=== PATIENT | female | born 1985 | race African-American/Black ===

== ENCOUNTER 2017-09-03 20:26 | Emergency (ER) | payer SELFPAY ==
[2017-09-03 20:39] VITALS: BP 126/85
[2017-09-03] MEDS ORDERED: Albuterol HFA INHALER* 8 gm MDI INH ONE (22:32)
--- NOTE | 2017-09-03 22:52 | ED ---
Shortness of Breath - HPI Summary HPI Summary: Patient presents to the ED with SOB. She states she has been seen twice for this at the [facility], and continues to have SOB. Notes to a mild cough. She was prescribed phenylephrine, but states she is allergic. She notes to worsening SOB at night and feels something stuck in her throat. Concerned also with thyroid cancer as her aunt has this. On arrival, RN notes to patient hyperventilating stating she cannot breathe, although her sat is 100%. She denies productive cough. She denies recent illness, throat pain or fevers, sweats or chills. Denies difficulty swallowing, allergies or hx of asthma. She appears to be in NAD. - History of Current Complaint Chief Complaint: EDShortnessOfBreath Time Seen by Provider: 09/03/17 22:05 Hx Obtained From: Patient Onset/Duration: Sudden Onset Timing: Constant Current Severity: None Aggrevating Factors: Deep Breaths, Recumbent Position Alleviating Factors: Nothing Associated Signs & Symptoms: Cough (Nonproductive) - Risk Factors Pulmonary Embolism: Negative Cardiac: Negative Pseudomonas: Negative Tuberculosis: Negative - Allergy/Home Medications Allergies/Adverse Reactions: Allergies Allergy/AdvReac Type Severity Reaction Status Date / Time Iodine Allergy Anaphylatic Verified 09/03/17 20:39 Shock NSAIDs Allergy Bleeding Verified 09/03/17 20:40 PMH/Surg Hx/FS Hx/Imm Hx Previously Healthy: Yes - Immunization History Hx Pertussis Vaccination: No Immunizations Up to Date: Unable to Obtain/Confirm Infectious Disease History: No Infectious Disease History: Denies: Traveled Outside the [place] in Last 30 Days - Social History Occupation: Employed Full-time Lives: With Family Alcohol Use: None Hx Substance Use: No Substance Use Type: Reports: None Hx Tobacco Use: No Smoking Status (MU): Never Smoked Tobacco Review of Systems Constitutional: Negative Negative: Fever, Chills, Fatigue Eyes: Negative Positive: Chest Pain Positive: Shortness Of Breath Gastrointestinal: Negative Genitourinary: Negative Positive: no symptoms reported, see HPI Musculoskeletal: Negative Neurological: Negative Psychological: Normal All Other Systems Reviewed And Are Negative: Yes Physical Exam Triage Information Reviewed: Yes Vital Signs On Initial Exam: Initial Vitals Temp Pulse Resp BP Pulse Ox 97.9 F 93 24 126/85 100 09/03/17 20:30 09/03/17 20:30 09/03/17 20:30 09/03/17 20:30 09/03/17 20:30 Vital Signs Reviewed: Yes Appearance: Positive: Well-Appearing, Well-Nourished Skin: Positive: Warm, Skin Color Reflects Adequate Perfusion Head/Face: Positive: Normal Head/Face Inspection Eyes: Positive: EOMI, NADIYA, Conjunctiva Clear Neck: Positive: Supple, No Lymphadenopathy Respiratory/Lung Sounds: Positive: Clear to Auscultation, Breath Sounds Present Cardiovascular: Positive: RRR, Pulses are Symmetrical in both Upper and Lower Extremities Musculoskeletal: Positive: Normal, Strength/ROM Intact Neurological: Positive: Sensory/Motor Intact, Alert, Oriented to Person Place, Time, Speech Normal Psychiatric: Positive: Normal, Affect/Mood Appropriate - [place] Coma Scale Coma Scale Total: 15 Diagnostics - Vital Signs Vital Signs Temp Pulse Resp BP Pulse Ox 09/03/17 20:30 97.9 F 93 24 126/85 100 - Laboratory Lab Statement: Any lab studies that have been ordered have been reviewed, and results considered in the medical decision making process. Course/Dx - Course Course Of Treatment: Patient is evaluated for SOB vs. airway obstruction or asthma vs. other. She remains at 100% on RA. She notes to chest pain only when taking deep breaths. Albuterol inhaler is given and 2 puffs in ED improved symptoms. However, d/t patient stating she had some SOB, d-dimer was ordered. D -dimer 333. D/t low risk for PE, according to [facility]: For patients in whom the risk of PE is thought to be low, a normal D-dimer (<500 ng/mL [fibrinogen equivalent units]) effectively excludes PE, and typically no further testing is required. CTA not ordered. Xray negative for any acute findings. She is given 50mg prednisone x 5 days. I have informed her to follow up with PCP and likely this is an anxiety attack vs. new onset asthma. She agrees to plan and will follow up accordingly. - Diagnoses Differential Diagnosis/HQI/PQRI: Positive: Airway Obstruction, Asthma, Chest Wall Pain, Pulmonary Embolism, Other - anxiety Provider Diagnoses: Shortness of breath Discharge - Discharge Plan Condition: Stable Disposition: HOME Prescriptions: Albuterol HFA INHALER* [Ventolin HFA Inhaler*] 1 puff INH Q4H PRN #1 mdi PRN Reason: Shortness Of Breath predniSONE TAB* [Deltasone TAB*] 50 mg PO DAILY #5 tab MDD 1 Patient Education Materials: Dyspnea (ED) Referrals: No Primary Care Phys,NOPCP [Primary Care Provider] - Additional Instructions: Please follow up with your PCP Take the albuterol as prescribed - up to every 4 hours Prednisone in the morning daily for 5 days
--- NOTE | 2017-09-04 08:50 | RAD ---
INDICATION: Shortness of breath, cough, chest pain. COMPARISON: No relevant prior exams available on the [facility] [place] for comparison. TECHNIQUE: Dual energy PA and routine lateral views of the chest were obtained. REPORT: Clear lungs and pleural spaces. Negative for pneumothorax. The heart, pulmonary vasculature, and mediastinal contours are unremarkable. Unremarkable osseous structures and soft tissue contours. IMPRESSION: No evidence for acute intrathoracic disease.
== END 2017-09-04 00:40 | disposition home or self-care (01) ==
LOC: ED 20:26
DX: R06.02 Shortness of breath (principal); R05 Cough; R07.9 Chest pain, unspecified
CPT/HCPCS: 36415; 71020; 85379; 99282; A9270-GY

== ENCOUNTER 2017-09-27 21:49 | Emergency (ER) | payer SELFPAY ==
[2017-09-27 21:56] VITALS: BP 120/80
--- NOTE | 2017-09-27 22:14 | UC ---
Davidson Rahman Natalie, scribed for Michael Romero MD on 09/27/17 at 2206 . Cardiac HPI - HPI Summary HPI Summary: The pt is a 32 y/o F presenting to c/o chest tightness and cough since . The pt states the pain feels like someones choking me. The chest tightness is rated 6/10. She was seen in the ER for similar symptoms on and was treated with Albuterol and steroids. Pt additionally c/o SOB and post nasal drip. The pain is aggravated by deep breaths (breathing through a straw) and is alleviated by nothing. She does not smoke. - History of Current Complaint Stated Complaint: COUGH Hx Obtained From: Patient Hx Last Menstrual Period: depo Onset/Duration: Lasting Weeks - started 08/18/17, Still Present Initial Severity: Moderate Current Severity: Moderate Chest Pain Location: Mid Sternal Character: Tightness Aggravating Factor(s): Deep Breaths Alleviating Factor(s): Nothing Associated Signs & Symptoms: Positive: SOB, Cough - Allergy/Home Medications Allergies/Adverse Reactions: Allergies Allergy/AdvReac Type Severity Reaction Status Date / Time Iodine Allergy Anaphylatic Verified 09/27/17 21:56 Shock NSAIDs Allergy Bleeding Verified 09/27/17 21:56 PMH/Surg Hx/FS Hx/Imm Hx - Surgical History Surgical History: None - Family History Known Family History: Positive: Cardiac Disease, Diabetes - Social History Alcohol Use: None Substance Use Type: None Smoking Status (MU): Never Smoked Tobacco Review of Systems ENT: Nasal Discharge, Sinus Congestion Respiratory: Shortness Of Breath, Cough Cardiovascular: Other - chest tightness All Other Systems Reviewed And Are Negative: Yes Physical Exam Triage Information Reviewed: Yes Appearance: Well-Appearing, No Pain Distress Vital Signs: Initial Vital Signs Temp 99.4 F 09/27/17 21:51 Pulse 90 09/27/17 21:51 Resp 18 09/27/17 21:51 BP 120/80 09/27/17 21:51 Pulse Ox 100 09/27/17 21:51 Vital Signs Reviewed: Yes Eyes: Positive: Conjunctiva Clear ENT: Positive: Pharynx normal, TMs normal Respiratory: Positive: Lungs clear, Normal breath sounds, No respiratory distress Cardiovascular: Positive: RRR, No Murmur Abdomen Description: Positive: Nontender Musculoskeletal: Positive: No Edema Neurological: Positive: Alert, Muscle Tone Normal Psychological: Positive: Normal Response To Family Skin Exam: Normal Diagnostics - EKG Cardiac Rate: NL Cardiac Rhythm: Sinus: Normal Ectopy: None ST Segment: Normal - Assessment/Plan Course Of Treatment: 32 yr old with chest tightness, some sob and worsening with deep breaths. EKG ok. Recommend ambulance transport to ER for further work up. She declines ambulance and signed out AMA. - Clinical Impression Provider Diagnoses: chest tightness. sob Discharge - Discharge Plan Condition: Good Disposition: AGAINST MEDICAL ADVICE Referrals: No Primary Care Phys,NOPCP [Primary Care Provider] - The documentation as recorded by the Davidson bella Natalie accurately reflects the service I personally performed and the decisions made by , Michael Romero MD.
== END 2017-09-27 22:18 | disposition left against medical advice (07) ==
LOC: UCEAST 21:49
DX: R07.9 Chest pain, unspecified (principal); R06.02 Shortness of breath; Z88.6 Allergy status to analgesic agent; Z88.8 Allergy status to other drugs, medicaments and biological substances
CPT/HCPCS: 93005; 99212; G0463

== ENCOUNTER 2017-09-28 10:53 | Emergency (ER) | payer SELFPAY ==
[2017-09-28 13:04] LABS: ABS Basophils 0.1 10^3/ul (0-0.2); ABS Eosinophils 0 10^3/ul (0-0.6); ABS Lymphocytes 1.7 10^3/ul (1.0-4.8); ABS Monocytes 0.4 10^3/ul (0-0.8); ABS Neutrophils 5.9 10^3/ul (1.5-7.7); ABS Nucleated RBC 0.01 10^3/ul; Eosinophil % 0.3 % (0-6); Hematocrit 37 % (35-47); Hemoglobin 11.7 g/dl (12.0-16.0); Lymphocyte % 20.9 % (25-47); Mean Corpuscular HGB Conc 32 g/dl (31-36); Mean Corpuscular Hemoglobin 25 pg (27-31); Mean Corpuscular Volume 78 fL (80-97); Mean Platelet Volume 10 um3 (7.4-10.4); Nucleated Red Blood Cells % 0.1; Platelet Count 282 10^3/ul (150-450); Red Cell Distribution Width 17 % (10.5-15); White Blood Count 8.1 10^3/ul (3.5-10.8)
[2017-09-28 15:22] LABS: Urine Appearance Cloudy; Urine Blood Negative (Negative); Urine Color Yellow; Urine Ketones Negative (Negative); Urine Protein 1+(30 mg/dL) (Negative); Urine Specific Gravity 1.026 (1.010-1.030); Urine Urobilinogen Negative (Negative)
--- NOTE | 2017-09-28 18:53 | RAD ---
Indication: Shortness of breath, chest tightness. Multiple clinical visits for same complaint. Comparison: Chest radiograph of the same date. Technique: Following administration of 8.400 mCi xenon-133 by inhalation anterior and posterior ventilation images were obtained. Following the administration of 6.100 mCi of Tc-99m macroaggregated albumin, perfusion images were obtained in multiple projections. Report: The ventilation pattern is uniform with mild delayed washout consistent with air trapping.. Negative for segmental or subsegmental perfusion defects. Perfusion is uniform throughout both lungs. IMPRESSION: 1. Mild diffuse air trapping consistent with obstructive lung disease. Correlate with clinical assessment. 2. Negative for subsegmental or segmental perfusion defects to indicate pulmonary embolism.
[2017-09-28 19:09] VITALS: BP 119/79
--- NOTE | 2017-09-28 20:08 | RAD ---
INDICATION: Dyspnea, shortness of breath, chest tightness. COMPARISON: VQ scan of the same date and September 03, 2017 chest radiograph. TECHNIQUE: Dual energy PA and routine lateral views of the chest were obtained. REPORT: Mildly elevated lung volumes. No pulmonary infiltrate, focal pulmonary lesion, pleural effusion, pneumothorax. The heart, pulmonary vasculature, and mediastinal contours are unremarkable. Unremarkable soft tissue contours and osseous structures. IMPRESSION: No radiographic evidence for pneumonia or acute cardiac process. Elevated lung volumes further supporting obstructive lung disease with VQ scan of the same date documented air trapping.
--- NOTE | 2017-09-29 08:48 | ED ---
Julio Rahman Angela, scribed for Christopher York MD on 09/28/17 at 1538 . HPI Chest Pain - HPI Summary HPI Summary: This pt is a 32 y/o female presenting to [facility] c/o chest tightness and non- productive cough since 2016. Pt reports she feels "squeezing" in her neck. She additionally notes SOB. Pt describes burning in her chest, which is constant and is waxing and waning. Her burning is aggravated at night. Denies fever. Pt reports she was given steroids (5 days worth) and inhaler pump with some relief. She notes her cough has not been alleviated. Prior to this pt was prescribed pseudoephedrine but notes she didn't finish it as she had bloody stools. Allergies to NSAIDs. Pt does not have a PCP. Pt states this is the 7th time she has seen a doctor. Pt takes depo shots at [facility]. - History of Current Complaint Chief Complaint: EDChestPainROMI Time Seen by Provider: 09/28/17 15:28 Hx Obtained From: Patient Hx Last Menstrual Period: depo Onset/Duration: Started Weeks Ago, Still Present Timing: Lasting Weeks Pain Intensity: 10 Pain Scale Used: 0-10 Numeric Chest Pain Location: Diffuse Chest Pain Radiates: No Character: Burning Aggravating Factor(s): Other: - at night Alleviating Factor(s): Nothing Associated Signs and Symptoms: Positive: Chest Pain, Shortness of Breath, Cough , Nonproductive Cough - Allergy/Home Medications Allergies/Adverse Reactions: Allergies Allergy/AdvReac Type Severity Reaction Status Date / Time Iodine Allergy Anaphylatic Verified 09/27/17 21:56 Shock NSAIDs Allergy Bleeding Verified 09/27/17 21:56 PMH/Surg Hx/FS Hx/Imm Hx Endocrine/Hematology History: Denies: Hx Diabetes, Hx Thyroid Disease Cardiovascular History: Denies: Hx Hypertension Respiratory History: Denies: Hx Asthma, Hx Chronic Obstructive Pulmonary Disease (COPD) GI History: Denies: Hx Ulcer Infectious Disease History: No Infectious Disease History: Denies: Hx Clostridium Difficile, Hx Hepatitis, Hx Human Immunodeficiency Virus (HIV), Hx of Known/Suspected MRSA, Hx Shingles, Hx Tuberculosis, Hx Known/ Suspected VRE, Hx Known/Suspected VRSA, History Other Infectious Disease, Traveled Outside the [place] in Last 30 Days - Family History Known Family History: Positive: Cardiac Disease, Diabetes, Renal Disease, Other - RA Family History: Mom is 53 y/o and dad is 55 y/o. - Social History Alcohol Use: None Hx Substance Use: No Substance Use Type: Reports: None Hx Tobacco Use: No Smoking Status (MU): Never Smoked Tobacco Review of Systems Negative: Fever, Chills Eyes: Negative ENT: Negative Positive: Chest Pain Positive: Shortness Of Breath, Cough Gastrointestinal: Negative Genitourinary: Negative Skin: Negative All Other Systems Reviewed And Are Negative: Yes Physical Exam - Summary Physical Exam Summary: Appearance: The patient is well-nourished in no acute distress and in no acute pain. Skin: The skin is warm and dry and skin color reflects adequate perfusion. HEENT: The head is normocephalic and atraumatic. The pupils are equal and reactive. The conjunctivae are clear and without drainage. Nares are patent and without drainage. Mouth reveals moist mucous membranes and the throat is without erythema and exudate. The external ears are intact. The ear canals are patent and without drainage. The tympanic membranes are intact. Neck: the neck is supple with full range of motion and non-tender. There are no carotid bruits. There is no neck vein distension. Respiratory: Chest is non-tender. Lungs are clear to auscultation and breath sounds are symmetrical and equal. Cardiovascular: Heart is tachycardic. There is no murmur or rub auscultated. There is no peripheral edema and pulses are symmetrical and equal. Abdomen: The abdomen is soft and non-tender. There are normal bowel sounds heard in all four quadrants and there is no organomegaly palpated. Musculoskeletal: There is no back tenderness noted. Extremities are non-tender with full range of motion. There is good capillary refill. There is no peripheral edema or calf tenderness elicited. Neurological: Patient is alert and oriented to person, place and time. The patient has symmetrical motor strength in all four extremities. Cranial nerves are grossly intact. Deep tendon reflexes are symmetrical and equal in all four extremities. Psychiatric: The patient has an appropriate affect and does not exhibit any anxiety or depression. Triage Information Reviewed: Yes Vital Signs On Initial Exam: Initial Vitals Temp Pulse Resp BP Pulse Ox 97.8 F 107 20 134/90 100 09/28/17 10:54 01/03/18 10:54 09/28/17 10:54 09/28/17 10:54 09/28/17 10:54 Vital Signs Reviewed: Yes - [place] Coma Scale Coma Scale Total: 15 Diagnostics - Vital Signs Vital Signs Temp Pulse Resp BP Pulse Ox 09/28/17 15:05 17 09/28/17 15:04 132/82 09/28/17 14:59 18 09/28/17 14:30 112/72 09/28/17 14:01 97 09/28/17 14:00 96 20 113/79 100 09/28/17 13:45 105 120/84 99 09/28/17 13:31 91 117/102 99 09/28/17 13:26 98 99 09/28/17 13:24 114/78 09/28/17 10:54 97.8 F 107 20 134/90 100 - Laboratory Lab Results: Lab Results 09/28/17 09/28/17 09/28/17 Range/Units 12:49 12:49 15:00 WBC 8.1 (3.5-10.8) 10^3/ul RBC 4.70 (4.0-5.4) 10^6/ul Hgb 11.7 L (12.0-16.0) g/dl Hct 37 (35-47) % MCV 78 L (80-97) fL MCH 25 L (27-31) pg MCHC 32 (31-36) g/dl RDW 17 H (10.5-15) % Plt Count 282 (150-450) 10^3/ul MPV 10 (7.4-10.4) um3 Neut % (Auto) 73.1 (38-83) % Lymph % (Auto) 20.9 L (25-47) % [place] % (Auto) 4.9 (1-9) % Eos % (Auto) 0.3 (0-6) % Baso % (Auto) 0.8 (0-2) % Absolute Neuts (auto) 5.9 (1.5-7.7) 10^3/ul Absolute Lymphs (auto) 1.7 (1.0-4.8) 10^3/ul Absolute Monos (auto) 0.4 (0-0.8) 10^3/ul Absolute Eos (auto) 0 (0-0.6) 10^3/ul Absolute Basos (auto) 0.1 (0-0.2) 10^3/ul Absolute Nucleated RBC 0.01 10^3/ul Nucleated RBC % 0.1 Sodium 137 (133-145) mmol/L Potassium 3.7 (3.5-5.0) mmol/L Chloride 106 (101-111) mmol/L Carbon Dioxide 24 (22-32) mmol/L Anion Gap 7 (2-11) mmol/L BUN 10 (6-24) mg/dL Creatinine 0.68 (0.51-0.95) mg/dL Est GFR ( Amer) 127.4 (>60) Est GFR (Non-Af Amer) 99.0 (>60) BUN/Creatinine Ratio 14.7 (8-20) Glucose 84 (70-100) mg/dL Calcium 9.9 (8.6-10.3) mg/dL Magnesium 2.0 (1.9-2.7) mg/dL Total Bilirubin 0.40 (0.2-1.0) mg/dL AST 16 (13-39) U/L ALT 11 (7-52) U/L Alkaline Phosphatase 69 (34-104) U/L Total Protein 8.0 (6.4-8.9) g/dL Albumin 4.4 (3.2-5.2) g/dL Globulin 3.6 (2-4) g/dL Albumin/Globulin Ratio 1.2 (1-3) Lipase 23 (11.0-82.0) U/L Urine Color Yellow Urine Appearance Cloudy Urine pH 7.0 (5-9) Ur Specific [place] 1.026 (1.010-1.030) Urine Protein 1+(30 mg/dl) H (Negative) Urine Ketones Negative (Negative) Urine Blood Negative (Negative) Urine Nitrate Negative (Negative) Urine Bilirubin Negative (Negative) Urine Urobilinogen Negative (Negative) Ur Leukocyte Esterase 1+ H (Negative) Urine WBC (Auto) Trace(0-5/hpf) (Absent) Urine RBC (Auto) 3+(>10/hpf) H (Absent) Ur Squamous Epith Cells Present H (Absent) Amorphous Crystals Present H (Absent) Urine Bacteria 1+ H (Absent) Urine Glucose Negative (Negative) Urine Ascorbic Acid * H (Negative) Result Diagrams: 09/28/17 12:49 09/28/17 12:49 Lab Statement: Any lab studies that have been ordered have been reviewed, and results considered in the medical decision making process. - Radiology Chest XR Radiology Interpretation Completed By: Radiologist - pending official radiology report, please see [facility]. - EKG 15:02 Cardiac Rate: NL EKG Rhythm: Sinus Rhythm - at [address] Segment: Normal - Additional Comments Diagnostic Additional Comments: Lung Scan VQ NM, as read per radiologist: IMPRESSION: 1. Mild diffuse air trapping consistent with obstructive lung disease. Correlate with clinical assessment. 2. Negative for subsegmental or segmental perfusion defects to indicate pulmonary embolism. Dr. York has reviewed this radiology report. Chest Pain Course/Dx - Course Course Of Treatment: Ms. Gonzales has been struggling with difficulty breathing, a tight chest and burning in her chest for a couple months. She has been seen several times. She feels that the inhaler she was given has helped but not the steroids. She also feels like her throat closes. She is stubbornly tachycardic in the ED and had an elevated d-dimer on a previous presentation. She is allergic to contrast dye and I obtained a V/Q scan which was low probability. The radiologist did read it as air trapping though and I will add a steroid inhaler to see if that helps. She is in no visible distress. - Diagnoses Provider Diagnoses: Bronchospasm Discharge - Discharge Plan Condition: Stable Disposition: HOME Prescriptions: Albuterol/Ipratropium RESP(NF) [Combivent Respimat(NF)] 1 aer IN BID #1 inhaler Patient Education Materials: Bronchospasm (ED) Referrals: No Primary Care Phys,NOPCP [Primary Care Provider] - [facility] PHYSICIAN REFERRAL [Outside] Additional Instructions: Please follow up with your primary care provider. RETURN TO THE ED FOR ANY WORSENING SYMPTOMS. The documentation as recorded by the Julio belal Angela accurately reflects the service I personally performed and the decisions made by me, Christopher York MD.
== END 2017-09-28 19:08 | disposition home or self-care (01) ==
LOC: ED 10:53
DX: J98.01 Acute bronchospasm (principal); R07.9 Chest pain, unspecified; R06.02 Shortness of breath; R05 Cough
CPT/HCPCS: 36415; 71046; 78582; 80053; 81003; 81015; 83690; 83735; 84702; 85025; 86140; 87086; 93005; 99283; A9540; A9558

== ENCOUNTER → 2018-07-25 17:14 | Emergency (ER) | payer SELFPAY ==
[~2018-07-25 17:14] MED LIST: Acetaminophen TAB* 325 MG PO ONE; HYDROcodone/ACETAMIN 5-325 MG* 1 TAB PO ONE
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
[2018-07-25 19:49] VITALS: BP 109/88
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
== END | disposition home or self-care (01) ==
LOC: ED 17:14
DX: S81.812A Laceration without foreign body, left lower leg, initial encounter (principal); V13.4XXA Pedal cycle driver injured in collision with car, pick-up truck or van in traffic accident, initial encounter; Y93.55 Activity, bike riding; Y92.410 Unspecified street and highway as the place of occurrence of the external cause; Z88.6 Allergy status to analgesic agent; Z91.041 Radiographic dye allergy status; Z91.013 Allergy to seafood
CPT/HCPCS: 12002; 36415; 84702; 99282; A9270-GY

== ENCOUNTER 2019-07-02 12:16 | Emergency (ER) | payer OTHER ==
--- OUTSIDE RECORDS SUMMARY | 2019-07-02 12:41 | XMS REPORT | Continuity of Care Document ---
:1985 External Reference #:[id number] Author Name Annabella Burroughs MD Address [address] [place] [address] Care Team Providers Name Role Phone [facility] Care Team Information Membership Correspondent [phone] Problems Active Problems Provider Date Cervical intraepithelial neoplasia grade 2 Annabella Burroughs MD Onset: 2018 Disorder of menstruation Annabella Burroughs MD Onset: 04/19/2019 Social History Type Date Description Comments Sex Unknown Tobacco Use Start: Unknown Never Smoked Cigarettes ETOH Use Denies alcohol use Recreational Drug Use Denies Drug Use Tobacco Use Start: Unknown Patient has never smoked Smoking Status Reviewed: 06/08/19 Patient has never smoked Exercise Type/Frequency Exercises regularly Seat Belt/Car Seat Always uses seat belt Allergies, Adverse Reactions, Alerts Active Allergies Reaction Severity Comments Date Iodine Hives, Itching 04/10/2019 Pseudoephedrine Anaphylaxis 04/10/2019 Shellfish-Derived Products Anaphylaxis 04/10/2019 NSAIDs 06/08/2019 Medications Active Medications SIG Qnty Indications Ordering Provider Date Iron 1 po tid Unknown 325(65Fe) mg Tablets Vitamin C 1 by mouth every Unknown 500mg Tablets day Medications Administered in Office Medication SIG Qnty Indications Ordering Provider Date PT SCRN Tbco Id as Non User Annabella Burroughs MD 04/11/2019 Injection Immunizations Description No Information Available Vital Signs Date Vital Result Comment 06/08/2019 2:51pm BP Systolic 122 mmHg BP Diastolic 74 mmHg Height 64.5 inches 5'4.50" Weight 181.00 lb BMI (Body Mass Index) 30.6 kg/m2 Last Menstrual Period 1670012 0 04/11/2019 10:23am BP Systolic 132 mmHg BP Diastolic 80 mmHg Height 64.5 inches 5'4.50" Weight 181.00 lb BMI (Body Mass Index) 30.6 kg/m2 Last Menstrual Period [id number] 0 Results Test Date Facility Test Result H/L Range Note Laboratory test 06/08/2019 [facility] <pending> [place] [address] Pathology [phone] Procedures Date Code Description Status 06/08/2019 25555 Colposcopy W/Loop Electrode Conization Of The Cervix Completed Medical Devices Description No Information Available Encounters Type Date Location Provider Dx Diagnosis Office Visit 04/11/[address] [facility] Annabella Burroughs MD N87.1 Moderate cervical 10:00a dysplasia N93.9 Abnormal uterine and vaginal bleeding, unspecified Assessments Date Code Description Provider 06/08/2019 N87.1 Moderate cervical dysplasia Annabella Burroughs MD 04/11/2019 N87.1 Moderate cervical dysplasia Annabella Burroughs MD 04/11/2019 N93.9 Abnormal uterine and vaginal bleeding, unspecified Annabella Burroughs MD Plan of Treatment Future Appointment(s):07/06/2019 8:30 am - Annabella Burroughs MD at [facility] Functional Status Description No Information Available Mental Status Description No Information Available Referrals Description No Information Available
--- NOTE | 2019-07-02 13:44 | ED ---
Shortness of Breath - HPI Summary HPI Summary: Pt. is a 33 y.o female who presents to the ER for worsening SOB over the last few days. Pt. states she was recently dx with asthma by PCP. She notes she had PFTs. Pt. notes she is currently on using an albuterol rescue inhaler. Pt. notes she has been using her inhaler numerous times without improvement. Pt. denies recent cough, fever. Pt. seen in ED numerous times for SOB and has had negative labs and CXR. Pt. does a hx of allergies and recently got a dog. Sxs are mild in severity. No current modifying factors. - History of Current Complaint Chief Complaint: EDAsthma Time Seen by Provider: 07/02/19 13:23 Hx Obtained From: Patient - Allergy/Home Medications Allergies/Adverse Reactions: Allergies Allergy/AdvReac Type Severity Reaction Status Date / Time Iodinated Contrast Media Allergy Anaphylatic Verified 07/25/18 17:26 [Iodinated Contrast- Oral Shock and IV Dye] NSAIDS (Non-Steroidal Allergy Bleeding Verified 07/25/18 17:26 Anti-Inflamma shellfish derived Allergy Anaphylatic Verified 07/25/18 17:26 Shock PMH/Surg Hx/FS Hx/Imm Hx Previously Healthy: Yes Endocrine/Hematology History: Denies: Hx Diabetes, Hx Thyroid Disease Cardiovascular History: Denies: Hx Hypertension Respiratory History: Denies: Hx Asthma, Hx Chronic Obstructive Pulmonary Disease (COPD) GI History: Denies: Hx Ulcer Infectious Disease History: No Infectious Disease History: Denies: Hx Clostridium Difficile, Hx Hepatitis, Hx Human Immunodeficiency Virus (HIV), Hx of Known/Suspected MRSA, Hx Shingles, Hx Tuberculosis, Hx Known/ Suspected VRE, Hx Known/Suspected VRSA, History Other Infectious Disease, Traveled Outside the [place] in Last 30 Days - Family History Known Family History: Positive: Cardiac Disease, Diabetes, Renal Disease, Other - RA Family History: Mom is 53 y/o and dad is 55 y/o. - Social History Occupation: Employed Full-time Lives: With Family Alcohol Use: Occasionally Alcohol Amount: wine/beer on the weekends Hx Substance Use: No Substance Use Type: Reports: None Hx Tobacco Use: No Smoking Status (MU): Never Smoked Tobacco Review of Systems Constitutional: Negative Negative: Fever, Chills ENT: Negative Cardiovascular: Negative Negative: Palpitations, Chest Pain Positive: Shortness Of Breath, Cough Skin: Negative Negative: Rash All Other Systems Reviewed And Are Negative: Yes Physical Exam Triage Information Reviewed: Yes Vital Signs On Initial Exam: Initial Vitals Temp Pulse Resp BP Pulse Ox 97.8 F 82 16 137/81 100 07/02/19 12:18 07/02/19 12:18 07/02/19 12:18 07/02/19 12:18 07/02/19 12:18 Vital Signs Reviewed: Yes Appearance: Positive: Well-Appearing - Pt. sitting in chair in NAD. SO present. Skin: Positive: Warm, Dry Head/Face: Positive: Normal Head/Face Inspection Eyes: Positive: Normal, EOMI, NADIYA, Conjunctiva Clear ENT: Positive: Pharynx normal, TMs normal Neck: Positive: Supple Respiratory/Lung Sounds: Positive: Other - Good breath sounds throughout that are slightly diminished.. Negative: Stridor, Wheezes, Unable to speak in full sentences, Fatigue Cardiovascular: Positive: Normal, RRR Neurological: Positive: Normal, CN Intact II-III Psychiatric: Positive: Affect/Mood Appropriate Procedures - Sedation Patient Received Moderate/Deep Sedation with Procedure: No Diagnostics - Vital Signs Vital Signs Temp Pulse Resp BP Pulse Ox 07/02/19 13:08 99.4 F 78 20 126/74 100 07/02/19 12:18 97.8 F 82 16 137/81 100 - Laboratory Lab Statement: Any lab studies that have been ordered have been reviewed, and results considered in the medical decision making process. Course/Dx - Course Course Of Treatment: Pt. with c/o SOB. O2 saturation 100% on RA which is normal. PERC is negative. Pt. requesting breathing tx which was ordered but when respiratory went to do tx pt. had already took her rescue inhaler and lungs were clear. Suspect pt. may benefit from maintenance. Suspect allergy component as well. We'll place patient on a short burst course of steroids and prescription for Zyrtec. Advised to call family doctor today to schedule close follow-up appointment to discuss further treatment. Patient understands and agrees with plan. ECG ordered by triage nurse done at 1244 shows a sinus rhythm of 71bpm, normal axis, no ST elevation. - Diagnoses Differential Diagnosis/HQI/PQRI: Positive: Asthma, Bronchitis, Pulmonary Embolism Provider Diagnoses: Asthma exacerbation Discharge ED - Sign-Out/Discharge Documenting (check all that apply): Patient Departure - Discharge Plan Condition: Improved Disposition: HOME Prescriptions: Cetirizine* [ZyrTEC 10 MG TAB*] 10 mg PO DAILY #30 tab predniSONE TAB* [Deltasone 20 MG TAB*] 40 mg PO DAILY #10 tab Patient Education Materials: Asthma (ED), Allergies (ED) Referrals: [facility] [Outside] Additional Instructions: Please call your PCP to schedule a close follow up appointment You may need to be placed on an asthma maintenance medication Take medications as directed Continue albuterol inhaler as directed Return to ER if symptoms change or worsen - Billing Disposition and Condition Condition: IMPROVED Disposition: Home
[2019-07-02] MEDS: Albuterol 2.5 MG/3 ML NEB.SOL* (0.083%) INH ONE ×2 (13:54→14:05)
[2019-07-02 14:19] VITALS: BP 132/76
== END 2019-07-02 14:10 | disposition home or self-care (01) ==
LOC: ED 12:16
DX: J45.901 Unspecified asthma with (acute) exacerbation (principal); Z88.6 Allergy status to analgesic agent; Z91.041 Radiographic dye allergy status
CPT/HCPCS: 93005; 99282

== ENCOUNTER 2019-12-16 01:54 | Emergency (ER) | payer SELFPAY ==
--- NOTE | 2019-12-16 02:14 | ED ---
Shortness of Breath - HPI Summary HPI Summary: pt c/o nonproductive cough, SOB for past couple of days. notes h/o asthma and has been using MDI w/ minimal relief. Also notes h/o anemia, states currently menstruating and thinks blood loss may be contributing to her SOB. Denies CP, n/ v, abd. pain, LE pain/swelling. No h/o CAD or VTE. no known sick contacts. 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 Associated Signs & Symptoms: Cough (Nonproductive) - Allergy/Home Medications Allergies/Adverse Reactions: Allergies Allergy/AdvReac Type Severity Reaction Status Date / Time Iodinated Contrast Media Allergy Anaphylatic Verified 12/16/19 02:47 [Iodinated Contrast- Oral Shock and IV Dye] NSAIDS (Non-Steroidal Allergy Bleeding Verified 12/16/19 02:47 Anti-Inflamma shellfish derived Allergy Anaphylatic Verified 12/16/19 02:47 Shock Home Medications: Home Medications Albuterol HFA INHALER* [Ventolin HFA Inhaler*] 1 puff INH Q4H PRN #1 mdi [Rx Confirmed 12/16/19] Albuterol/Ipratropium RESP(NF) [Combivent Respimat(NF)] 1 aer IN BID #1 inhaler 09/28/17 [Rx Confirmed 12/16/19] Multivitamin [Multiple Vitamins] 1 tab PO DAILY 07/25/18 [History Confirmed ] Cetirizine* [ZyrTEC 10 MG TAB*] 10 mg PO DAILY #30 tab 07/02/19 [Rx Confirmed ] PMH/Surg Hx/FS Hx/Imm Hx Endocrine/Hematology History: Reports: Hx Anemia Denies: Hx Diabetes, Hx Thyroid Disease Cardiovascular History: Denies: Hx Hypertension Respiratory History: Reports: Hx Asthma Denies: Hx Chronic Obstructive Pulmonary Disease (COPD) GI History: Denies: Hx Ulcer Infectious Disease History: Denies: Hx Clostridium Difficile, Hx Hepatitis, Hx Human Immunodeficiency Virus (HIV), Hx of Known/Suspected MRSA, Hx Shingles, Hx Tuberculosis, Hx Known/ Suspected VRE, Hx Known/Suspected VRSA, History Other Infectious Disease - Family History Known Family History: Positive: Cardiac Disease, Diabetes, Renal Disease, Other - RA Family History: Mom is 53 y/o and dad is 55 y/o. - Social History Alcohol Use: Occasionally Alcohol Amount: wine/beer on the weekends Hx Substance Use: No Substance Use Type: Reports: None Hx Tobacco Use: No Smoking Status (MU): Never Smoked Tobacco Review of Systems Negative: Chest Pain Positive: Shortness Of Breath, Cough - Nonproductive cough. Negative: Abdominal Pain, Vomiting, Nausea Negative: other - Denies LE pain/swelling. All Other Systems Reviewed And Are Negative: Yes Physical Exam - Summary Physical Exam Summary: Constitutional: Well-developed, Well-nourished, Alert. (-) Distressed Skin: Warm, Dry HENT: Normocephalic; Atraumatic Eyes: Conjunctiva normal Neck: Musculoskeletal ROM normal neck. (-) JVD, (-) Stridor, (-) Tracheal deviation Cardio: Rhythm regular, rate normal, Heart sounds normal; Intact distal pulses; The pedal pulses are 2+ and symmetric. Radial pulses are 2+ and symmetric. (-) Murmur Pulmonary/Chest wall: (-) Wheezes, (-) Rales. Increased respiratory rate and decreased breath sounds. Abd: Soft, (-) tenderness, (-) Distension, (-) Guarding, (-) Rebound Musculoskeletal: (-) Edema Lymph: (-) Cervical adenopathy Neuro: Alert, Oriented x3 Psych: Mood and affect Normal Triage Information Reviewed: Yes Vital Signs Reviewed: Yes Procedures - Sedation Patient Received Moderate/Deep Sedation with Procedure: No Diagnostics - Laboratory Lab Statement: Any lab studies that have been ordered have been reviewed, and results considered in the medical decision making process. - Radiology CXR Radiology Interpretation Completed By: ED Physician Summary of Radiographic Findings: NAD in CXR pending official results. This CXR was reviewed and interpreted by Dr. Mora. Course/Dx - Course Course Of Treatment: Patient presented to [facility] with a chief complaint of SOB and nonproductive cough. She has a h/o of asthma and has been using MDI w/ minimal refliec. She denies CP, N/V, abd. pain, LE pain/swelling. Patient has increased respiratory rate and decreased breath sounds. Patient was negative for Influenza A and Influenza B. Her COVID19 test is pending. NAD was found in her CXR as reviewed and interpreted by Dr. Mora. Patient was discharged to home. She was given COVID19 education and isolation instructions, will followup with PCP. - Diagnoses Provider Diagnoses: Upper respiratory infection Discharge ED - Sign-Out/Discharge Documenting (check all that apply): Patient Departure - Discharged. - Discharge Plan Condition: Stable Disposition: HOME Patient Education Materials: Upper Respiratory Infection (ED) Forms: COVID-19 Tested & Isolation Referrals: [facility] [Outside] - 3 Days Additional Instructions: Please return to the ED for any new or worsening symptoms. Please followup with the [facility] within 3 days. Please practice isolation in accordance to the COVID19 instructions. COVID19 results are pending at this time. - Billing Disposition and Condition Condition: STABLE Disposition: Home - Attestation Statements Document Initiated by Shayne: Yes Documenting Scribe: Arpita Bradley Provider For Whom Shayne is Documenting (Include Credential): Newton Mora DO Scribe Attestation: Arpita Rahman, scribed for Newton Mora DO on at 0518. Scribe Documentation Reviewed: Yes Provider Attestation: The documentation as recorded by the shayne, Arpita Bradley accurately reflects the service I personally performed and the decisions made by , Newton Mora DO Status of Scribe Document: Viewed
[2019-12-16 03:05] LABS: Influenza A Molecular Negative (Negative); Influenza B Molecular Negative (Negative)
[2019-12-16 03:23] VITALS: BP 135/86
== END 2019-12-16 03:50 | disposition home or self-care (01) ==
LOC: ED 01:54
DX: J06.9 Acute upper respiratory infection, unspecified (principal); R05 Cough; R06.02 Shortness of breath; Z79.899 Other long term (current) drug therapy; Z20.828 Contact with and (suspected) exposure to other viral communicable diseases
CPT/HCPCS: 71045; 99283; U0002